=== PATIENT | female | born 1955 | race African-American/Black ===

== ENCOUNTER 2016-09-06 10:35 | Inpatient (IN) | payer OTHER ==
[2016-09-03 17:51] VITALS: BMI 30.6
[2016-09-06] MEDS ORDERED: MICROFIBRILLAR COLLAGEN 1 GM EACH ONE ×2 (11:09→12:47)
[2016-09-06] MEDS ORDERED: LIDOCAINE 1%/EPI 1:100000 (50 ML MULTI DOSE VIAL) ONE (11:09)
[2016-09-06] MEDS ORDERED: BUPIVACAINE HCL/PF 0.5% (5MG/ML) 10 ML VIAL ONE (11:09)
[2016-09-06] MEDS ORDERED: ROCURONIUM BROMIDE 50 MG/5 ML VIAL ONE (11:23)
[2016-09-06] MEDS ORDERED: PROPOFOL 20 ML ONE ×2 (11:23→11:48)
[2016-09-06] MEDS ORDERED: MIDAZOLAM HCL 2 MG/2 ML SINGLE DOSE VIAL ONE (11:23)
[2016-09-06] MEDS ORDERED: LIDOCAINE HCL/PF 2% SDV 5ML VIAL ONE (11:28)
[2016-09-06] MEDS ORDERED: ceFAZolin SODIUM 1 GM VIAL IVPB ONE (11:36)
[2016-09-06] MEDS ORDERED: SODIUM CHLORIDE 0.9% P/F 10 ML VIAL IJ ONE (11:40)
[2016-09-06] MEDS ORDERED: DEXAMETHASONE SOD PHOSPHATE 4 MG/1 ML VIAL ONE (11:43)
[2016-09-06] MEDS ORDERED: LIDOCAINE 1%/EPI 1:100000 (50 ML MULTI DOSE VIAL) PNB ONE (12:06)
[2016-09-06] MEDS ORDERED: BUPIVACAINE HCL/PF 0.5% (5MG/ML) 10 ML VIAL IJ ONE (12:06)
[2016-09-06] MEDS ORDERED: MICROFIBRILLAR COLLAGEN 1 GM EACH TP ONE (12:47)
--- NOTE | 2016-09-06 13:17 | OP ---
Operative Note - Note: Operative Date: 09/06/16 Pre-Operative Diagnosis: right thyroid mass Operation: right hemithyroidectomy Post-Operative Diagnosis: Same as Pre-op Surgeon: Franck Wills Assistant Softball Coach: Jazzy Cerna Anesthesiologist/PROPERTY OFFICER: Russel Feldman Anesthesia: General Specimens Removed: right thyroid Estimated Blood Loss (mls): 20 Fluid Volume Replaced (mls): 1,000 Operative Report Dictated: Yes
--- NOTE | 2016-09-06 13:18 | SURG ---
Surgery Workers Compensation Attorney Note Workers Compensation Attorney: Jazzy Cerna PA-C Date of Service: 09/06/16 Diagnosis: right thyroid mass Procedure: right hemithyroidectomy I was present for the entirety of the operative procedure. For further detail, please refer to operative report. Visit type - Case Type Case Type: Scheduled Admission - Emergency Emergency Visit: No - New patient This patient is new to me today: Yes Date on this admission: 09/06/16 - Critical Care Critical Care patient: No
[2016-09-06] MEDS ORDERED: ONDANSETRON 4 MG/2 ML VIAL IVPUSH PRN (13:45)
[2016-09-06] MEDS ORDERED: LACTATED RINGERS SOLUTION 1,000 ML IV SCH (13:45)
--- NOTE | 2016-09-06 13:52 | OP ---
DATE OF OPERATION: 09/06/2016 SURGICAL ATTENDING: Lizeth Martinez MD PREOPERATIVE DIAGNOSIS: Right thyroid mass. POSTOPERATIVE DIAGNOSIS: Right thyroid mass. ANESTHESIA: General endotracheal. PROCEDURE: 1. Right hemithyroidectomy. 2. Neck ultrasound. DESCRIPTION OF PROCEDURE: The patient was taken in to the operating room, placed in a supine position, endotracheally intubated, eyes were protected. Neck ultrasound was performed showing a right thyroid mass with no obvious extracapsular extension. No other thyroid mass nor lymphadenopathy was identified. The patient was then prepped and draped in the usual sterile fashion. Local anesthesia was administered, and a horizontal incision was made in an upper neck skin crease. Subplatysmal flaps were raised superiorly and inferiorly, and flap hooks were placed for exposure. The main raphe was incised, and the right-sided strap muscles were elevated off the thyroid gland. The recurrent laryngeal nerve and the superior laryngeal nerve were both identified, tested with the nerve monitor, and preserved. The vagus nerve was also tested and found to be intact. The superior pole was transected with the LigaSure. The inferior and posterior attachments were also transected. In this way, the thyroid gland was lifted off the recurrent nerve and the trachea. Parathyroid glands superiorly and inferiorly were preserved with their blood supply intact and appeared to be viable. The isthmus was transected, and this way, the right thyroid lobe was removed and sent to pathology. There was no violation of the capsule of the thyroid or the tumor. Hemostasis was achieved with electrocautery and Avitene. The wound was then closed in 3 layers. Note that the nerves were test at the conclusion of the procedure and were intact. The Dermabond was placed. The patient was then awakened, extubated, and taken to recovery in stable condition. Dr. Martinez, the attending surgeon, was present throughout the entire procedure. LIZETH MARTINEZ M.D. [id number]
[2016-09-06] MEDS ORDERED: ALBUTEROL SO4 0.083% IH SOL 2.5 MG/3 ML VIAL.NEB. NEB ONE (14:32)
[2016-09-06 15:32] LABS: ARTERIAL BLD GAS O2 SATURATION 88.2 % (90-98.9); ARTERIAL BLOOD GAS BASE EXCESS -0.5 meq/l (-2-2); ARTERIAL BLOOD GAS HCO3 24.8 meq/L (22-26); ARTERIAL BLOOD GAS PO2 60.1 mmHg (80-100); ARTERIAL BLOOD GAS pH 7.35 (7.35-7.45)
[2016-09-06 15:33] LABS: ALLENS TEST POSITIVE; ART PUNCT SITE LEFT BRACHIAL; LPM/O2% 2L; PT. ON O2? YES
[2016-09-06 15:34] LABS: TYPE OF O2 NASAL
[2016-09-06] MEDS: FUROSEMIDE 40 MG/4 ML INJECTABLE VIAL IVPB ONE (16:00)
[2016-09-06] MEDS ORDERED: FUROSEMIDE 40 MG/4 ML INJECTABLE VIAL ONE (16:04)
[2016-09-06] MEDS ORDERED: oxyCODONE HCL 5 MG TABLET PO PRN (16:05)
[2016-09-06] MEDS ORDERED: ACETAMINOPHEN 325 MG TABLET (FP) PO PRN (16:05)
--- NOTE | 2016-09-06 16:19 | PN ---
Progress Note (short form) - Note Progress Note: PULMONARY CONSULTATION DICTATED 09/06/16 IMP ACUTE HYPOXEMIC RESPIRATORY FAILURE LIKELY NEGATIVE PRESSURE PULMONARY EDEMA ? CHF H/O ASTHMA HTN S/P PARTIAL THYROIDECTOMY PLAN IV LASIX X1 IV STEROIDS INHALED BRONCHODILATORS SUPPLEMENTAL O2 F/U CHEST X-RAY AM CE X [address] CORRAL Problem List - Problems (1) Acute hypoxemic respiratory failure Code(s): J96.01 - ACUTE RESPIRATORY FAILURE WITH HYPOXIA (2) Pulmonary edema Code(s): J81.1 - CHRONIC PULMONARY EDEMA (3) Asthma Code(s): J45.909 - UNSPECIFIED ASTHMA, UNCOMPLICATED (4) History of thyroidectomy, subtotal Code(s): E89.0 - POSTPROCEDURAL HYPOTHYROIDISM (5) GERD (gastroesophageal reflux disease) Code(s): K21.9 - GASTRO-ESOPHAGEAL REFLUX DISEASE WITHOUT ESOPHAGITIS (6) HTN (hypertension) Code(s): I10 - ESSENTIAL (PRIMARY) HYPERTENSION
[2016-09-06] MEDS ORDERED: ALBUTEROL SO4 2.5/IPRATROPIUM 0.5 INH SOL 3 ML VIAL.NEB. NEB PRN (16:22)
--- NOTE | 2016-09-06 16:25 | PN ---
Progress Note (short form) - Note Progress Note: Patient had a laryngospasm on arrival in PACU which was broken by posative pressure breating by bagg and mask.Patient was running low o2 saturation in pacu.CXR showed left lower anf R lower and middle lobe infilterates.Dr Hernandez saw the patient in pacu and is taking care of her pulmonary problem.Will keep patient in the hospital tonight and will f/u.Patient is other hitchcock stable and o2 sat in low 90 on o2 FM.
[2016-09-06 16:36] LABS: MCH 25.4 pg (25.7-33.7); MCHC 32.4 g/dl (32.0-36.0); MEAN CELL VOLUME 78.5 fl (80-96); PLATELET COUNT 210 K/MM3 (134-434); RDW 14.8 % (11.6-15.6); WHITE BLOOD COUNT 10.2 K/mm3 (4.0-10.0)
[2016-09-06] MEDS: methylPREDNISolone NA SUCC 40 MG/1 ML VIAL IVPB SCH ×2 (16:45→22:08)
[2016-09-06 17:14] LABS: TROPONIN I < 0.02 ng/ml (0.00-0.05)
--- NOTE | 2016-09-06 18:41 | CONS ---
DATE OF CONSULTATION: 09/06/2016 PULMONARY CONSULTATION REFERRING PHYSICIAN: Franck Wills M.D. 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 Patient underwent a partial thyroidectomy earlier this a.m. Postoperative being wheeled to recovery room after extubation she was noted to have a significant drop in her O2 saturation to the 30s. At the time, she was noted to have respiratory distress, and felt to have acute glottic closure. At the time, she was placed on 100% O2 and bronchodilators with some improvement which raised the O2 saturations into the low 90s. The patient is a nonsmoker. There is no history of any respiratory failure in the past, there is no history of recent travel, no history of DVT or PE in the past. There is no history of recent travel. 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 REVIEW OF SYSTEMS: Positive orthopnea. Positive dyspnea. No chest pain. No palpitations. No fevers. No chills. MEDICATION: Prior to admission include vitamin D3, Crestor, Norvasc, and aspirin. PHYSICAL EXAMINATION: General: The patient is a well-developed, well-nourished female awake, but mild respiratory distress. Vital signs: She is currently afebrile. Blood pressure is 132/64, respirations 22, O2 saturation 90% on 3 L. HEENT: Head is normocephalic, atraumatic. Neck: Supple. Heart: Regular. S1, S2. Chest: Bilateral crackles throughout. A few scattered bilateral wheezes. Abdomen: Soft. Bowel sounds positive. Extremities: No cyanosis, edema. LABORATORY: BUN 10, creatinine 0.8. WBC 5, hemoglobin 12.2, hematocrit 37.8, platelet count of 211,000. Blood gas: pH 7.35, pCO2 of 46, pO2 of 16, bicarbonate 24, and saturation of 88. Chest x-ray reveals normal cardiac silhouette, diffuse bilateral infiltrates. IMPRESSION: 1. Acute hypoxic respiratory failure, most likely secondary to negative pressure, pulmonary edema, secondary to acute glottic closure. 2. Mild congestive heart failure secondary to fluid overload. 3. History of asthma. 4. Hypertension. 5. Status post thyroidectomy. PLAN: Lasix IV 20 mg x 1, supplemental O2, maintain O2 saturation greater than 90%, inhaled bronchodilators, a short course of IV steroids, obtain followup chest x- ray in the a.m., strict I's and O's. ISSA CORRAL M.D. [id number] MTDD
[2016-09-06] MEDS: oxyCODONE HCL 5 MG TABLET PO PRN (20:30)
[2016-09-06] MEDS: ROSUVASTATIN CA 10 MG TABLET (FP) PO SCH (22:09)
--- NOTE | 2016-09-07 01:27 | CONSULT ---
Consult Consult Specialty:: endocrine Referred by:: / Reason for Consultation:: sp partial thyroidectomy - History of Present Illness Chief Complaint: post op History of Present Illness: 61 y female,sp partial thyroidectomy thyroid rt lobe mass,flus,had episode of laryngo spasm post op,difficulty breathing subsequently relieved with respiratory therapy,denies chest pain,palpitation or cough,speech,swallow and neck movement no difficulty - History Source History Provided By: Patient - Past Medical History ...: No - Alcohol/Substance Use Hx Alcohol Use: No - Smoking History Smoking history: Never smoked Have you smoked in the past 12 months: No Home Medications - Allergies Allergies/Adverse Reactions: Allergies Allergy/AdvReac Type Severity Reaction Status Date / Time No Known Allergies Allergy Verified 09/06/16 10:51 - Home Medications Home Medications: Ambulatory Orders Amlodipine Besylate [Norvasc -] 2.5 mg PO DAILY 01/18/16 Aspirin [ASA -] 81 mg PO DAILY 01/18/16 Cholecalciferol (Vitamin D3) [Vitamin D3] 2,000 unit PO DAILY 01/18/16 Rosuvastatin Calcium [Crestor] 10 mg PO HS 01/18/16 Oxycodone HCl/Acetaminophen [Percocet 5-325 mg Tablet] 1 tab PO Q4H PRN #20 tablet MDD 6 09/06/16 Review of Systems - Review of Systems Constitutional: reports: No Symptoms Eyes: reports: No Symptoms HENT: reports: No Symptoms Neck: reports: No Symptoms Cardiovascular: reports: No Symptoms Respiratory: reports: No Symptoms Gastrointestinal: reports: No Symptoms Genitourinary: reports: No Symptoms Breasts: reports: No Symptoms Reported Musculoskeletal: reports: No Symptoms Integumentary: reports: No Symptoms Neurological: reports: No Symptoms Endocrine: reports: No Symptoms Physical Exam Vital Signs: Vital Signs Temperature 98 F 09/06/16 20:39 Pulse Rate 70 09/06/16 20:39 Respiratory Rate 20 09/06/16 20:39 Blood Pressure 126/70 09/06/16 20:39 O2 Sat by Pulse Oximetry (%) 95 09/06/16 18:05 Constitutional: Yes: Calm Eyes: Yes: EOM Intact HENT: Yes: Normocephalic, Hoarseness Neck: Yes: Trachea Midline, Decreased ROM, Other (thyroid surgical sight clear mild swelling) Cardiovascular: Yes: WNL Respiratory: Yes: WNL Gastrointestinal: Yes: Normal Bowel Sounds ...Rectal Exam: Yes: Deferred Renal/: Yes: WNL Musculoskeletal: Yes: WNL Extremities: Yes: WNL Edema: No Peripheral Pulses WNL: Yes Wound/Incision: Yes: Clean/Dry Neurological: Yes: Alert, Oriented ...Motor Strength: WNL Labs: CBC, BMP 09/06/16 16:15 Assessment/Plan Current Active Problems Acute hypoxemic respiratory failure (Acute) Asthma (Acute) HTN (hypertension) (Acute) History of thyroidectomy, subtotal (Acute) Pulmonary edema (Acute) partial thyroidectomy post op Abnormal Lab Results 09/06/16 09/06/16 09/06/16 15:28 16:15 16:15 WBC 10.2 H D RBC 5.24 H MCV 78.5 L ABG pCO2 at Pt Temp 46.1 H ABG pO2 at Pt Temp 60.1 L ABG O2 Sat (Measured) 88.2 L Creatine Kinase 459 H D Current Medications Generic Name Dose Route Start Last Admin Trade Name Freq PRN Reason Stop Dose Admin Acetaminophen 650 mg 09/06/16 20:13 Tylenol - PO Q4H PRN FEVER OR PAIN Albuterol/Ipratropium 1 amp 09/06/16 16:22 Duoneb - NEB Q4H PRN SHORTNESS OF BREATH Amlodipine Besylate 2.5 mg 09/07/16 10:00 Norvasc - PO DAILY [facility] Aspirin 81 mg 09/07/16 10:00 Asa - PO DAILY [facility] Methylprednisolone Sodium Succinate 60 mg 09/06/16 21:00 09/06/16 22:08 Solu-Medrol - IVPB 60 mg Q6H-IV [facility] Administration Oxycodone HCl 5 mg 09/06/16 20:13 09/06/16 20:30 Roxicodone - PO 5 mg Q4H PRN Administration PAIN Rosuvastatin Calcium 10 mg 09/06/16 22:00 09/06/16 22:09 Crestor - PO 10 mg HS B[facility] Administration plan:pulmonary consult appreciated stable from endocrine perspective awaiting path report outpatient follow up
[2016-09-07] MEDS: oxyCODONE HCL 5 MG TABLET PO PRN ×3 (02:46→19:52)
[2016-09-07] MEDS: methylPREDNISolone NA SUCC 40 MG/1 ML VIAL IVPB SCH ×3 (03:21→20:00)
[2016-09-07 08:08] LABS: BASOPHIL 0.1 % (0-2.0); MCH 25.6 pg (25.7-33.7); MCHC 32.3 g/dl (32.0-36.0); MEAN CELL VOLUME 79.2 fl (80-96); MEAN PLT VOLUME 9.4 fl (7.5-11.1); NEUTROPHILS 88.2 % (42.8-82.8); PLATELET COUNT 181 K/MM3 (134-434); RDW 14.6 % (11.6-15.6); WHITE BLOOD COUNT 10.2 K/mm3 (4.0-10.0)
--- NOTE | 2016-09-07 08:21 | CON.CARD ---
Consult Consult Specialty:: cardiology Reason for Consultation:: shortness of breath; hx ? recent equivocal stress treadmill test - History of Present Illness Chief Complaint: Pt A&Ox3; feels "much, much" better respiratory-hitchcock; no pain at surgical site (thyroid). History of Present Illness: 61 yo black female,sp partial thyroidectomy thyroid rt lobe mass,flus,, bronchial asthma, HTN, hyperlipidemida, vitamin D deficiency, had episode of laryngospasm post op,difficulty breathing subsequently relieved with respiratory therapy,denies chest pain,palpitation or cough,speech,swallow and neck movement no difficulty. Pt is followed by Dr. Montoya, test developer. She reports having a recent positive treadmill test, and is planning to undergo a stress test with imaging ( ?ECHO; ? MIBI) in the near future as an outpatient. Pt says she was diagnosed with asthma years ago, but has not had an incident of shortness of breath or used inhalers for the past 2 years. She was frightened this episode by the trouble breathing, but feels much better now. - History Source History Provided By: Patient, Medical Record Limitations to Obtaining History: No Limitations - Past Medical History Cardio/Vascular: Yes: HTN, Hyperlipdemia, Other (recent ?positive stress treadmill test) Pulmonary: Yes: Asthma Renal/: No: Renal Failure Reproductive: Yes: Postmenopausal ...: No Endocrine: Yes: Other - Alcohol/Substance Use Hx Alcohol Use: No - Smoking History Smoking history: Never smoked Have you smoked in the past 12 months: No Home Medications - Allergies Allergies/Adverse Reactions: Allergies Allergy/AdvReac Type Severity Reaction Status Date / Time No Known Allergies Allergy Verified 09/06/16 10:51 - Home Medications Home Medications: Ambulatory Orders Amlodipine Besylate [Norvasc -] 2.5 mg PO DAILY 01/18/16 Aspirin [ASA -] 81 mg PO DAILY 01/18/16 Cholecalciferol (Vitamin D3) [Vitamin D3] 2,000 unit PO DAILY 01/18/16 Rosuvastatin Calcium [Crestor] 10 mg PO HS 01/18/16 Oxycodone HCl/Acetaminophen [Percocet 5-325 mg Tablet] 1 tab PO Q4H PRN #20 tablet MDD 6 09/06/16 Family Disease History - Family Disease History Family Disease History: Diabetes: Father, Mother ( of [place] in her 80s), Sister , Heart Disease: Mother Review of Systems - Review of Systems Constitutional: reports: No Symptoms Eyes: reports: No Symptoms HENT: reports: No Symptoms Neck: reports: No Symptoms Cardiovascular: reports: No Symptoms Respiratory: reports: No Symptoms Gastrointestinal: reports: No Symptoms Genitourinary: reports: No Symptoms Breasts: reports: No Symptoms Reported Musculoskeletal: reports: No Symptoms Integumentary: reports: No Symptoms Neurological: reports: No Symptoms Endocrine: reports: Other (mass noted on neck; pt denies having had symptoms prior to the discovery) Hematology/Lymphatic: reports: No Symptoms Psychiatric: reports: No Symptoms - Risk Factors Known Risk Factors: Yes: Hypercholesterolemia, Hypertension, Race, Other ( bronchial asthma) Vital Signs: Vital Signs Temperature 98 F 09/07/16 06:00 Pulse Rate 64 09/07/16 06:00 Respiratory Rate 20 09/07/16 06:00 Blood Pressure 105/54 09/07/16 06:00 O2 Sat by Pulse Oximetry (%) 95 09/06/16 21:00 Constitutional: Yes: Well Nourished, No Distress Eyes: Yes: WNL HENT: Yes: WNL Neck: Yes: WNL Respiratory: Yes: Regular, Rales (mild right basal rales that clear significantly after coughing) Gastrointestinal: Yes: WNL Renal/: Yes: WNL Cardiovascular: Yes: WNL JVD: No Carotid Bruit: No PMI: Non-Displaced Heart Sounds: Yes: S1, S2 Musculoskeletal: Yes: WNL Extremities: Yes: WNL Edema: No Peripheral Pulses WNL: Yes Integumentary: Yes: Incision, Other (neck surgical site dressed, dry) Neurological: Yes: WNL Psychiatric: Yes: WNL - Other Data Labs, Other Data: CBC, BMP 09/07/16 05:35 Troponin, BNP 09/06/16 09/06/16 16:15 16:15 Troponin I < 0.02 B-Natriuretic Peptide 45.98 Troponin, BNP 09/06/16 09/06/16 16:15 16:15 Troponin I < 0.02 B-Natriuretic Peptide 45.98 Abnormal Lab Results 09/06/16 09/06/16 09/06/16 15:28 16:15 16:15 WBC 10.2 H D RBC 5.24 H MCV 78.5 L Neutrophils % Monocytes % ABG pCO2 at Pt Temp 46.1 H ABG pO2 at Pt Temp 60.1 L ABG O2 Sat (Measured) 88.2 L Random Glucose Creatine Kinase 459 H D 09/07/16 09/07/16 05:35 05:35 WBC 10.2 H RBC MCV 79.2 L Neutrophils % 88.2 H D Monocytes % 2.5 L ABG pCO2 at Pt Temp ABG pO2 at Pt Temp ABG O2 Sat (Measured) Random Glucose 142 H D Creatine Kinase Imaging - Results Chest X-ray: Report Reviewed (cannot bring up image; bilateral infilrates reported) EKG: Pending Problem List - Problems (1) Acute hypoxemic respiratory failure Assessment/Plan: as noted by erosion control specialist, ?negative-pressure pulmonary edema, with fluid overload. Pt is now asymptomatic from a cardiac and respiratory standpoint. F/u EKG: if unremarkable, she may be followed as an outpatient from a cardiac perspective (she is due to undergo a stress test with imaging as an outpatient). Code(s): J96.01 - ACUTE RESPIRATORY FAILURE WITH HYPOXIA (2) Asthma Code(s): J45.909 - UNSPECIFIED ASTHMA, UNCOMPLICATED (3) HTN (hypertension) Code(s): I10 - ESSENTIAL (PRIMARY) HYPERTENSION (4) History of thyroidectomy, subtotal Code(s): E89.0 - POSTPROCEDURAL HYPOTHYROIDISM (5) Hyperlipidemia Code(s): E78.5 - HYPERLIPIDEMIA, UNSPECIFIED (6) Pulmonary edema Code(s): J81.1 - CHRONIC PULMONARY EDEMA
[2016-09-07 08:26] LABS: CALCIUM 9.4 mg/dL (8.5-10.1); CREATININE 0.7 mg/dL (0.55-1.02)
--- NOTE | 2016-09-07 08:30 | PN ---
Progress Note (short form) - Note Progress Note: Anesthesia Post op Pt seen and examined S;Alert and awake states feels breathe better O: Vital Signs Temperature 98 F 09/07/16 06:00 Pulse Rate 64 09/07/16 06:00 Respiratory Rate 20 09/07/16 06:00 Blood Pressure 105/54 09/07/16 06:00 O2 Sat by Pulse Oximetry (%) 95 09/06/16 21:00 CBC, BMP 09/07/16 05:35 09/07/16 05:35 A/P: Current Active Problems Acute hypoxemic respiratory failure (Acute) Asthma (Acute) HTN (hypertension) (Acute) History of thyroidectomy, subtotal (Acute) Pulmonary edema (Acute) s/p Right thyroidectomy Post op pulmonary edema improving Continue current care Tawanda Clark MD
--- NOTE | 2016-09-07 09:30 | PN ---
Progress Note (short form) - Note Progress Note: Patient seen and examined. Wound CDI, neck flat. Breathing very easily, no complaints of dyspnea. Doing well post-op. Can DC home today. RTO within the next 2-3 weeks. [id number]
--- NOTE | 2016-09-07 09:32 | DS ---
Physical Examination Vital Signs: Vital Signs Temperature 98 F 09/07/16 06:00 Pulse Rate 64 09/07/16 06:00 Respiratory Rate 20 09/07/16 09:00 Blood Pressure 105/54 09/07/16 06:00 O2 Sat by Pulse Oximetry (%) 97 09/07/16 09:00 Constitutional: Yes: No Distress Eyes: Yes: WNL HENT: Yes: WNL Neck: Yes: WNL Cardiovascular: Yes: WNL Respiratory: Yes: WNL Gastrointestinal: Yes: WNL ...Rectal Exam: Yes: Deferred Renal/: Yes: WNL Breast(s): Yes: WNL Musculoskeletal: Yes: WNL Extremities: Yes: WNL Edema: No Integumentary: Yes: WNL Wound/Incision: Yes: Clean/Dry Neurological: Yes: WNL ...Motor Strength: WNL Psychiatric: Yes: WNL (Recovered from postoperative respiratory distress. Wound CDI. Ready for DC) Labs: CBC, BMP 09/07/16 05:35 09/07/16 05:35 Cogent, Discharge Summary - Discharge Summary Reason For Visit: THYROID NODULE Problems: All Active Problems Acute hypoxemic respiratory failure (Acute) Asthma (Acute) HTN (hypertension) (Acute) History of thyroidectomy, subtotal (Acute) Hyperlipidemia (Acute) Pulmonary edema (Acute) Ankle sprain (Acute) Atypical chest pain (Acute) Contusion (Acute) GERD (gastroesophageal reflux disease) (Acute) Left eye pain (Acute) Multiple contusions (Acute) Condition: Stable - Instructions Referrals: Franck Wills MD [Staff Physician] - Disposition: HOME - Discharge Medications Comprehensive Discharge Medication List: Ambulatory Orders Amlodipine Besylate [Norvasc -] 2.5 mg PO DAILY 01/18/16 Aspirin [ASA -] 81 mg PO DAILY 01/18/16 Cholecalciferol (Vitamin D3) [Vitamin D3] 2,000 unit PO DAILY 01/18/16 Rosuvastatin Calcium [Crestor] 10 mg PO HS 01/18/16 Oxycodone HCl/Acetaminophen [Percocet 5-325 mg Tablet] 1 tab PO Q4H PRN #20 tablet MDD 6 09/06/16
[2016-09-07] MEDS: ACETAMINOPHEN 325 MG TABLET (FP) PO PRN ×2 (09:50→19:53)
[2016-09-07] MEDS: amLODIPine BESYLATE 2.5 MG TABLET (FP) PO SCH (09:51)
[2016-09-07] MEDS: ASPIRIN 81 MG CHEWABLE TABLETS PO SCH (09:51)
--- NOTE | 2016-09-07 11:55 | PN ---
Progress Note, Physician History of Present Illness: PULMONARY ALERT,FEELING BETTER,-SOB,-COUGH - Current Medication List Current Medications: Active Medications Acetaminophen (Tylenol -) 650 mg PO Q4H PRN PRN Reason: FEVER OR PAIN Last Admin: 09/07/16 09:50 Dose: 650 mg Albuterol/Ipratropium (Duoneb -) 1 amp NEB Q4H PRN PRN Reason: SHORTNESS OF BREATH Amlodipine Besylate (Norvasc -) 2.5 mg PO DAILY [facility] Last Admin: 09/07/16 09:51 Dose: 2.5 mg Aspirin (Asa -) 81 mg PO DAILY [facility] Last Admin: 09/07/16 09:51 Dose: 81 mg Methylprednisolone Sodium Succinate (Solu-Medrol -) 60 mg IVPB Q6H-IV [facility] Last Admin: 09/07/16 09:51 Dose: 60 mg Oxycodone HCl (Roxicodone -) 5 mg PO Q4H PRN PRN Reason: PAIN Last Admin: 09/07/16 09:49 Dose: 5 mg Rosuvastatin Calcium (Crestor -) 10 mg PO HS [facility] Last Admin: 09/06/16 22:09 Dose: 10 mg - Objective Vital Signs: Vital Signs Temperature 98.1 F 09/07/16 09:41 Pulse Rate 74 09/07/16 09:41 Respiratory Rate 20 09/07/16 09:00 Blood Pressure 104/64 09/07/16 09:41 O2 Sat by Pulse Oximetry (%) 97 09/07/16 09:00 Constitutional: Yes: Well Nourished, Calm Eyes: Yes: WNL HENT: Yes: WNL Neck: Yes: WNL Cardiovascular: Yes: Regular Rate and Rhythm, S1, S2 Respiratory: Yes: Rales (LESS CRACKLES BILATERALLY) Gastrointestinal: Yes: Normal Bowel Sounds, Soft Extremities: Yes: WNL Edema: No Labs: CBC, BMP 09/07/16 05:35 09/07/16 05:35 Problem List - Problems (1) Acute hypoxemic respiratory failure Code(s): J96.01 - ACUTE RESPIRATORY FAILURE WITH HYPOXIA (2) Pulmonary edema Code(s): J81.1 - CHRONIC PULMONARY EDEMA (3) Asthma Code(s): J45.909 - UNSPECIFIED ASTHMA, UNCOMPLICATED (4) History of thyroidectomy, subtotal Code(s): E89.0 - POSTPROCEDURAL HYPOTHYROIDISM (5) GERD (gastroesophageal reflux disease) Code(s): K21.9 - GASTRO-ESOPHAGEAL REFLUX DISEASE WITHOUT ESOPHAGITIS (6) HTN (hypertension) Code(s): I10 - ESSENTIAL (PRIMARY) HYPERTENSION Assessment/Plan IMP ACUTE HYPOXEMIC RESPIRATORY FAILURE LIKELY NEGATIVE PRESSURE PULMONARY EDEMA H/O ASTHMA HTN S/P PARTIAL THYROIDECTOMY PLAN D/C STEROIDS INHALED BRONCHODILATORS SUPPLEMENTAL O2 CHEST X-RAY DR CORRAL Problem List - Problems (1) Acute hypoxemic respiratory failure Code(s): J96.01 - ACUTE RESPIRATORY FAILURE WITH HYPOXIA (2) Pulmonary edema Code(s): J81.1 - CHRONIC PULMONARY EDEMA (3) Asthma Code(s): J45.909 - UNSPECIFIED ASTHMA, UNCOMPLICATED (4) History of thyroidectomy, subtotal Code(s): E89.0 - POSTPROCEDURAL HYPOTHYROIDISM (5) GERD (gastroesophageal reflux disease) Code(s): K21.9 - GASTRO-ESOPHAGEAL REFLUX DISEASE WITHOUT ESOPHAGITIS (6) HTN (hypertension) Code(s): I10 - ESSENTIAL (PRIMARY) HYPERTENSION
--- NOTE | 2016-09-07 14:42 | HP ---
CHIEF COMPLAINT: i had trouble breathing HISTORY OF PRESENT ILLNESS: This is a 61 yo F with PMH of stable asthma (no symptoms x2 yrs), htn, hld and thyroid mass, who is day 2 s/p partial R thyroidectomy. In PACU she developed laryngeal spasm, couldn't breathe and was treated with bag mask and nebs. She felt better but subsequently remained sob. CXR revealed RLL LLL and RML infiltrates. She was evaluated by pulmonology as assessed to have negative pressure airway edema. she was given one dose of IV lasix, bronchodilator nebs, IV steroids and supplemental O2. She was also evaluated by cardiology and endoctrinology, both assessed patient to be stable from their specialty standpoint. She currentlyf eels well, at her respiratory baseline, however her exercise O2 on RA dropped to 86% today. She denoe cough, chest pain, palpitations, throat pain, loc, dizziness. Recent Travel: denies PAST MEDICAL HISTORY: as above PAST SURGICAL HISTORY: as above Social History: lives at home Smoking: denies Alcohol: denies Drugs: denies Family History: htn hld Allergies No Known Allergies Allergy (Verified 09/06/16 10:51) HOME MEDICATIONS: Home Medications Medication Instructions Recorded Amlodipine Besylate [Norvasc -] 2.5 mg PO DAILY 01/18/16 Aspirin [ASA -] 81 mg PO DAILY 01/18/16 Cholecalciferol (Vitamin D3) 2,000 unit PO DAILY 01/18/16 [Vitamin D3] Rosuvastatin Calcium [Crestor] 10 mg PO HS 01/18/16 Oxycodone HCl/Acetaminophen 1 tab PO Q4H PRN #20 tablet MDD 6 09/06/16 [Percocet 5-325 mg Tablet] REVIEW OF SYSTEMS CONSTITUTIONAL: Absent: fever, chills HEENT: Absent: rhinorrhea, nasal congestion, throat pain, throat swelling, difficulty swallowing, mouth swelling CARDIOVASCULAR: Absent: chest pain, syncope, palpitations RESPIRATORY: Absent: cough, orthopnea, wheezing, stridor, hemoptysis GASTROINTESTINAL: Absent: abdominal pain, abdominal distension, nausea, vomiting, diarrhea GENITOURINARY: Absent: dysuria MUSCULOSKELETAL: Absent: myalgia, arthralgia SKIN: Absent: rash, itching, pallor HEMATOLOGIC/IMMUNOLOGIC: Absent: frequent infections ENDOCRINE: Absent: unexplained weight gain, unexplained weight loss, heat intolerance, cold intolerance NEUROLOGIC: Absent: headache, focal weakness or paresthesias, dizziness PSYCHIATRIC: Absent: anxiety PHYSICAL EXAMINATION Vital Signs - 24 hr 09/06/16 09/06/16 09/06/16 14:55 15:10 15:25 Temperature Pulse Rate 65 61 64 Respiratory 20 20 22 Rate Blood Pressure 133/42 121/71 130/62 O2 Sat by Pulse 100 95 94 L Oximetry (%) 09/06/16 09/06/16 09/06/16 15:40 15:55 16:10 Temperature Pulse Rate 64 70 74 Respiratory 24 22 18 Rate Blood Pressure 130/62 120/62 134/64 O2 Sat by Pulse 93 L 95 94 L Oximetry (%) 09/06/16 09/06/16 09/06/16 16:25 16:40 16:55 Temperature Pulse Rate 65 65 66 Respiratory 14 18 16 Rate Blood Pressure 130/59 123/64 137/72 O2 Sat by Pulse 94 L 95 95 Oximetry (%) 09/06/16 09/06/16 09/06/16 17:10 17:25 17:40 Temperature 98.9 F Pulse Rate 60 61 61 Respiratory 20 18 18 Rate Blood Pressure 144/54 114/54 111/55 O2 Sat by Pulse 92 L 95 95 Oximetry (%) 09/06/16 09/06/16 09/06/16 18:05 20:39 21:00 Temperature 97.9 F 98 F Pulse Rate 62 70 Respiratory 16 20 20 Rate Blood Pressure 119/74 126/70 O2 Sat by Pulse 95 95 Oximetry (%) 09/07/16 09/07/16 09/07/16 02:00 06:00 09:00 Temperature 99 F 98 F Pulse Rate 60 64 Respiratory 18 20 20 Rate Blood Pressure 105/52 105/54 O2 Sat by Pulse 95 Oximetry (%) 09/07/16 09/07/16 09/07/16 09:41 11:55 14:17 Temperature 98.1 F 98.4 F Pulse Rate 74 84 66 Respiratory 20 Rate Blood Pressure 104/64 96/40 O2 Sat by Pulse 91 L Oximetry (%) GENERAL: Awake, alert, and fully oriented, in no acute distress. HEAD: Normal with no signs of trauma. EYES: Pupils equal, round and reactive to light, extraocular movements intact, sclera anicteric, conjunctiva clear. No lid lag. EARS, NOSE, THROAT: Moist mucous membranes. NECK: supple without JVD, or masses, midline surgical incision clean LUNGS: bibasilar ronchi, mild . HEART: Regular rate and rhythm, normal S1 and S2 greade 2 systolic ej murmur ABDOMEN: Soft, nontender, not distended, normoactive bowel sounds MUSCULOSKELETAL: No CVA tenderness. UPPER EXTREMITIES: 2+ pulses No peripheral edema. LOWER EXTREMITIES: 2+ pulses No peripheral edema. NEUROLOGICAL: Cranial nerves II-XII grossly intact. PSYCHIATRIC: Cooperative. Good eye contact. Appropriate mood and affect. SKIN: Warm, dry Laboratory Results - last 24 hr 09/06/16 09/06/16 09/06/16 15:28 16:15 16:15 WBC RBC Hgb Hct MCV MCHC RDW Plt Count MPV Neutrophils % Lymphocytes % Monocytes % Eosinophils % Basophils % Puncture Site Left brachial ABG pH 7.35 ABG pCO2 at Pt Temp 46.1 H ABG pO2 at Pt Temp 60.1 L ABG HCO3 24.8 ABG O2 Sat (Measured) 88.2 L ABG O2 Content 15.3 ABG Base Excess -0.5 Chad Test Positive O2 Delivery Device Nasal Oxygen Flow Rate 2l PEEP 0.0 Sodium Potassium Chloride Carbon Dioxide Anion Gap BUN Creatinine Random Glucose Calcium Creatine Kinase 459 H D CK-MB (CK-2) 2.751 Troponin I < 0.02 B-Natriuretic Peptide 45.98 09/06/16 09/07/16 09/07/16 16:15 05:35 05:35 WBC 10.2 H D 10.2 H RBC 5.24 H 4.91 Hgb 13.3 12.5 Hct 41.2 38.8 MCV 78.5 L 79.2 L MCHC 32.4 32.3 RDW 14.8 14.6 Plt Count 210 181 MPV 9.0 9.4 Neutrophils % 88.2 H D Lymphocytes % 9.2 D Monocytes % 2.5 L Eosinophils % 0.0 D Basophils % 0.1 Puncture Site ABG pH ABG pCO2 at Pt Temp ABG pO2 at Pt Temp ABG HCO3 ABG O2 Sat (Measured) ABG O2 Content ABG Base Excess Chad Test O2 Delivery Device Oxygen Flow Rate PEEP Sodium 141 Potassium 4.1 Chloride 101 Carbon Dioxide 28 Anion Gap 12 BUN 12 Creatinine 0.7 Random Glucose 142 H D Calcium 9.4 Creatine Kinase CK-MB (CK-2) Troponin I B-Natriuretic Peptide ASSESSMENT/PLAN: This is a 61 yo F with PMH of stable asthma (no symptoms x2 yrs), htn, hld and thyroid mass, who is day 2 s/p partial R thyroidectomy. In PACU she developed laryngeal spasm, couldn't breathe and was treated with bag mask and nebs. Subsequently developed negative pressure pulmonary edema ACUTE HYPOXIC RESPIRATORY FAILURE -due to negative pressure pulmonary edemacaused by acute laryngospasm (resolved) -s/p lasis -pulm, cardio consult appreciated -duoneb PRN -NC oxygen prn 3L -CXR improved, repeat AM -desatted during exercise to 86%, repeat tomorrow -incentive spirometry up tp 1250 -can stop steroids Asthma -stable, does not require treatment at this time -f/u pulm outpatient HTN norvasc, asa HLD -crestor 10 hs Thyroid mass -day 1 s/o r hemothyroidectomy -local wound care -f/u pathology result -f/u with endocrinology outpatient FEN no ivf stable lytes regular diet Dispo: med rocco. anticipate d/c tomorrow Problem List - Problem (1) Acute hypoxemic respiratory failure Code(s): J96.01 - ACUTE RESPIRATORY FAILURE WITH HYPOXIA (2) Asthma Code(s): J45.909 - UNSPECIFIED ASTHMA, UNCOMPLICATED (3) HTN (hypertension) Code(s): I10 - ESSENTIAL (PRIMARY) HYPERTENSION (4) History of thyroidectomy, subtotal Code(s): E89.0 - POSTPROCEDURAL HYPOTHYROIDISM (5) Hyperlipidemia Code(s): E78.5 - HYPERLIPIDEMIA, UNSPECIFIED (6) Pulmonary edema Code(s): J81.1 - CHRONIC PULMONARY EDEMA Visit type - Emergency Visit Emergency Visit: No - New Patient This patient is new to me today: Yes Date on this admission: 09/07/16 - Critical Care Critical Care patient: No
--- NOTE | 2016-09-07 17:01 | PN ---
Teaching Attending Note Name of Resident: Shamika Chaney ATTENDING PHYSICIAN STATEMENT I saw and evaluated the patient. I reviewed the resident's note and discussed the case with the resident. I agree with the resident's findings and plan as documented. SUBJECTIVE: This is a 61-year-old woman with a history of HTN, hyperlipidemia, asthma, vitamin D deficiency and thyroid mass who underwent right hemithyoidectomy yesterday. Post-operatively, she had laryngospasm and shortness of breath. Chest x-ray showed bilateral infiltrates. She was treated with Lasix, SoluMedrol and DuoNeb with improvement. Currently she denies shortness of breath but she is hypoxic with exertion. OBJECTIVE: Vital Signs Period Temp Pulse Resp BP Sys/Olson Pulse Ox Last 24 Hr 97.9 F-99 F 60-84 16-20 96-144/40-74 91-95 HEART: S1 S2, RRR LUNGS: Rales at bases ABDOMEN: Soft, non-tender, non-distended, normal BS EXTREMITIES: No edema ASSESSMENT AND PLAN: 1. Acute hypoxic respiratory failure secondary to negative pressure pulmonary edema from post-op laryngospasm - Continue oxygen, DuoNeb 2. Asthma 3. Hypertension - Continue Norvasc 4. Hyperlipidemia - Continue Crestor 5. Thyroid mass, s/p right hemithyroidectomy 09/06
--- NOTE | 2016-09-07 18:22 | EKG ---
Test Reason : Blood Pressure : / mmHG Vent. Rate : 057 BPM Atrial Rate : 057 BPM P-R Int : 146 ms QRS Dur : 086 ms QT Int : 420 ms P-R-T Axes : 001 016 021 degrees QTc Int : 408 ms SINUS BRADYCARDIA OTHERWISE NORMAL ECG WHEN COMPARED WITH ECG OF 18-MAR-2016 15:00, NO SIGNIFICANT CHANGE WAS FOUND Confirmed by SEB JUAN MD ([id number]) on 09/07/2016 6:22:18 PM Referred By: Franck Wills Confirmed By:SEB JUAN MD
[2016-09-07] MEDS: FUROSEMIDE 40 MG/4 ML INJECTABLE VIAL IVPB ONE (21:36)
[2016-09-07] MEDS: ROSUVASTATIN CA 10 MG TABLET (FP) PO SCH (21:36)
[2016-09-08] MEDS: methylPREDNISolone NA SUCC 40 MG/1 ML VIAL IVPB SCH ×2 (02:58→09:45)
--- NOTE | 2016-09-08 07:54 | PN ---
Progress Note, Physician Chief Complaint: Pt has occasional pain at site of thyroid surgery if she moves her neck too far to the right; otherwise has no complaints. Good appetite (eating breakfast). History of Present Illness: 61 yo black female,sp partial thyroidectomy-- thyroid rt lobe mass, bronchial asthma, HTN, hyperlipidemida, vitamin D deficiency, had episode of laryngospasm post op,difficulty breathing subsequently relieved with respiratory therapy, denies chest pain,palpitation or cough,speech,swallow and neck movement no difficulty. Pt is followed by Dr. Montoya, furniture dipper. She reports having a recent positive treadmill test, and is planning to undergo a stress test with imaging ( ?ECHO; ? MIBI) in the near future as an outpatient. Pt says she was diagnosed with asthma years ago, but has not had an incident of shortness of breath or used inhalers for the past 2 years. She was frightened this episode by the trouble breathing, but feels much better now. - Current Medication List Current Medications: Active Medications Acetaminophen (Tylenol -) 650 mg PO Q4H PRN PRN Reason: FEVER OR PAIN Last Admin: 09/07/16 19:53 Dose: 650 mg Albuterol/Ipratropium (Duoneb -) 1 amp NEB Q4H PRN PRN Reason: SHORTNESS OF BREATH Last Admin: 09/07/16 23:06 Dose: 1 amp Amlodipine Besylate (Norvasc -) 2.5 mg PO DAILY [facility] Last Admin: 09/07/16 09:51 Dose: 2.5 mg Aspirin (Asa -) 81 mg PO DAILY [facility] Last Admin: 09/07/16 09:51 Dose: 81 mg Methylprednisolone Sodium Succinate (Solu-Medrol -) 40 mg IVPB Q6H-IV [facility]JORN Last Admin: 09/08/16 02:58 Dose: 40 mg Oxycodone HCl (Roxicodone -) 5 mg PO Q4H PRN PRN Reason: PAIN Last Admin: 09/07/16 19:52 Dose: 5 mg Rosuvastatin Calcium (Crestor -) 10 mg PO HS [facility]JORN Last Admin: 09/07/16 21:36 Dose: 10 mg - Objective Vital Signs: Vital Signs Temperature 98 F 09/08/16 02:00 Pulse Rate 70 09/08/16 02:00 Respiratory Rate 18 09/08/16 02:00 Blood Pressure 113/47 09/08/16 02:00 O2 Sat by Pulse Oximetry (%) 99 09/07/16 21:00 Constitutional: Yes: No Distress Eyes: Yes: WNL HENT: Yes: WNL Neck: Yes: Other (anterior neck horiz) Cardiovascular: Yes: Regular Rate and Rhythm Respiratory: Yes: WNL Gastrointestinal: Yes: WNL ...Rectal Exam: Yes: Deferred Genitourinary: No: Anuria Breast(s): Yes: WNL Musculoskeletal: Yes: WNL Extremities: Yes: WNL Edema: No Peripheral Pulses WNL: Yes Integumentary: Yes: Incision Wound/Incision: Yes: Steri Strips Neurological: Yes: WNL Psychiatric: Yes: WNL Labs: CBC, BMP 09/07/16 05:35 09/07/16 05:35 Abnormal Lab Results 09/07/16 09/07/16 05:35 05:35 WBC 10.2 H MCV 79.2 L Neutrophils % 88.2 H D Monocytes % 2.5 L Random Glucose 142 H D Problem List - Problems (1) Acute hypoxemic respiratory failure Assessment/Plan: as noted by manager public, ?negative-pressure pulmonary edema, with fluid overload. Pt is now asymptomatic from a cardiac and respiratory standpoint. 09/07/16 EKG: sinus bradycardia (VR 57 bpm), otherwise unremarkable. She may be followed as an outpatient from a cardiac perspective (she is due to undergo a stress test with imaging as an outpatient). Code(s): J96.01 - ACUTE RESPIRATORY FAILURE WITH HYPOXIA (2) Asthma Code(s): J45.909 - UNSPECIFIED ASTHMA, UNCOMPLICATED (3) HTN (hypertension) Code(s): I10 - ESSENTIAL (PRIMARY) HYPERTENSION (4) History of thyroidectomy, subtotal Assessment/Plan: TFTs WNL. F/u with donor technician, surgeon. F/u pain management (on oxycodone). Code(s): E89.0 - POSTPROCEDURAL HYPOTHYROIDISM (5) Hyperlipidemia Code(s): E78.5 - HYPERLIPIDEMIA, UNSPECIFIED (6) Pulmonary edema Code(s): J81.1 - CHRONIC PULMONARY EDEMA
[2016-09-08 08:29] LABS: MCH 25.2 pg (25.7-33.7); MCHC 31.9 g/dl (32.0-36.0); MEAN CELL VOLUME 79.1 fl (80-96); PLATELET COUNT 179 K/MM3 (134-434); RDW 14.5 % (11.6-15.6); WHITE BLOOD COUNT 12.5 K/mm3 (4.0-10.0)
[2016-09-08 09:42] VITALS: PULSE 79; TEMP 97.9
[2016-09-08 09:43] VITALS: BP 109/46
[2016-09-08] MEDS: oxyCODONE HCL 5 MG TABLET PO PRN (09:44)
[2016-09-08] MEDS: ASPIRIN 81 MG CHEWABLE TABLETS PO SCH (09:44)
[2016-09-08] MEDS: ACETAMINOPHEN 325 MG TABLET (FP) PO PRN (09:50)
--- NOTE | 2016-09-08 10:42 | PN ---
Progress Note, Physician History of Present Illness: pulmonary alert,feeling better,-sob,-rico. O2 sat 94% post exercise on ra - Current Medication List Current Medications: Active Medications Acetaminophen (Tylenol -) 650 mg PO Q4H PRN PRN Reason: FEVER OR PAIN Last Admin: 09/08/16 09:50 Dose: 650 mg Albuterol/Ipratropium (Duoneb -) 1 amp NEB Q4H PRN PRN Reason: SHORTNESS OF BREATH Last Admin: 09/07/16 23:06 Dose: 1 amp Amlodipine Besylate (Norvasc -) 2.5 mg PO DAILY [facility]JORN Last Admin: 09/07/16 09:51 Dose: 2.5 mg Aspirin (Asa -) 81 mg PO DAILY [facility] Last Admin: 09/08/16 09:44 Dose: 81 mg Methylprednisolone Sodium Succinate (Solu-Medrol -) 40 mg IVPB Q6H-IV BJORN Last Admin: 09/08/16 09:45 Dose: 40 mg Oxycodone HCl (Roxicodone -) 5 mg PO Q4H PRN PRN Reason: PAIN Last Admin: 09/08/16 09:44 Dose: 5 mg Rosuvastatin Calcium (Crestor -) 10 mg PO HS BJORN Last Admin: 09/07/16 21:36 Dose: 10 mg - Objective Vital Signs: Vital Signs Temperature 97.9 F 09/08/16 09:40 Pulse Rate 79 09/08/16 09:40 Respiratory Rate 20 09/08/16 09:40 Blood Pressure 109/46 09/08/16 09:42 O2 Sat by Pulse Oximetry (%) 99 09/07/16 21:00 Constitutional: Yes: Well Nourished, Calm Eyes: Yes: WNL HENT: Yes: WNL Neck: Yes: WNL Cardiovascular: Yes: Regular Rate and Rhythm, S1, S2 Respiratory: Yes: CTA Bilaterally Gastrointestinal: Yes: WNL Extremities: Yes: WNL Edema: No Labs: CBC, BMP - ....Imaging Chest X-ray: Report Reviewed, Image Reviewed Problem List - Problems (1) Acute hypoxemic respiratory failure Code(s): J96.01 - ACUTE RESPIRATORY FAILURE WITH HYPOXIA (2) Pulmonary edema Code(s): J81.1 - CHRONIC PULMONARY EDEMA (3) Asthma Code(s): J45.909 - UNSPECIFIED ASTHMA, UNCOMPLICATED (4) History of thyroidectomy, subtotal Code(s): E89.0 - POSTPROCEDURAL HYPOTHYROIDISM (5) GERD (gastroesophageal reflux disease) Code(s): K21.9 - GASTRO-ESOPHAGEAL REFLUX DISEASE WITHOUT ESOPHAGITIS (6) HTN (hypertension) Code(s): I10 - ESSENTIAL (PRIMARY) HYPERTENSION Assessment/Plan IMP ACUTE HYPOXEMIC RESPIRATORY FAILURE LIKELY NEGATIVE PRESSURE PULMONARY EDEMA H/O ASTHMA HTN S/P PARTIAL THYROIDECTOMY PLAN PREDNISONE X3 DAYS INHALED BRONCHODILATORS DISCHARGE HOME DR CORRAL Problem List - Problems (1) Acute hypoxemic respiratory failure Code(s): J96.01 - ACUTE RESPIRATORY FAILURE WITH HYPOXIA (2) Pulmonary edema Code(s): J81.1 - CHRONIC PULMONARY EDEMA (3) Asthma Code(s): J45.909 - UNSPECIFIED ASTHMA, UNCOMPLICATED (4) History of thyroidectomy, subtotal Code(s): E89.0 - POSTPROCEDURAL HYPOTHYROIDISM (5) GERD (gastroesophageal reflux disease) Code(s): K21.9 - GASTRO-ESOPHAGEAL REFLUX DISEASE WITHOUT ESOPHAGITIS (6) HTN (hypertension) Code(s): I10 - ESSENTIAL (PRIMARY) HYPERTENSION
[2016-09-08] MEDS: amLODIPine BESYLATE 2.5 MG TABLET (FP) PO SCH (12:52)
--- NOTE | 2016-09-08 15:58 | DS ---
Physical Examination Vital Signs: Vital Signs Temperature 97.9 F 09/08/16 09:40 Pulse Rate 79 09/08/16 09:40 Respiratory Rate 20 09/08/16 09:40 Blood Pressure 109/46 09/08/16 09:42 O2 Sat by Pulse Oximetry (%) 94 L 09/08/16 09:00 Findings/Remarks: no fever or chills , no abd apin , no SOB or pain in throat . Constitutional: Yes: Well Nourished, No Distress, Calm Eyes: Yes: Conjunctiva Clear, EOM Intact HENT: Yes: Atraumatic, Normocephalic, Other (oropharyngeal bruising ( after intubation ) . Nl uvula). No: Pharyngeal Erythema Neck: Yes: Supple, Trachea Midline Cardiovascular: Yes: Regular Rate and Rhythm, S1, S2. No: Murmur, Rub Respiratory: Yes: Regular, CTA Bilaterally Gastrointestinal: Yes: Normal Bowel Sounds, Soft Extremities: Yes: Other (no tremor) Edema: No Labs: CBC, BMP 09/08/16 08:00 09/07/16 05:35 Discharge Summary Reason For Visit: THYROID NODULE Current Active Problems Acute hypoxemic respiratory failure (Acute) History of thyroidectomy, subtotal (Acute) Pulmonary edema (Acute) HTN (hypertension) (Chronic) Hyperlipidemia (Chronic) Hospital Course: Dc Diagnoses : 1- Negative pressure pum edema 2- Hemithyrodectomy 3- Resp failure due to #1 Hospital course : 61 y/o lady with h/o HTN, hyperlipidemia, asthma, vitamin D deficiency and thyroid mass who presented to hospital on 09/06 for hemithyroidectomy . after her surgery she developed hypoxia and had to be placed on Oxygen. Cxray showed pulm edema , which was thought to be due to negative pressure pulm edema. she was seen by card and PUlm and was given a dose of lasix and steroids . Her sx as well as her cxray significantly improved after those interventions and she was weaned of oxygen. today on exam she has no wheezing, no crackles and nl uvula with no edema of makayla-pharynx. she was sent home on steroids for 2 days , and her home medications . ( she was called as prednisone was not included in dc paperwork, sent to pharmacy after dc ) she is to follow with Dr. Scott as she will need repeat TFTs soon to evaluate the need fro thyroid hormon replacement . also tofollow with Sx and pulm Condition at dc : improved time spent for dc 30 min Condition: Improved - Instructions Diet, Activity, Other Instructions: Dear LAN ROCHA, Post Operative Instructions Physical activity Resume your normal everyday activity as tolerated. You may walk unlimited kristal of and climb stairs. You may resume driving the car when you feel safe and comfortable behind the wheel, do not drive while taking narcotics. Wound care You may shower 48 hours after surgery. If there are tapes present on the skin, you may shower over them. Diet There are no dietary restrictions. Eat healthy, high-fiber foods. Drink 6 to 8 glasses of liquid each day. This will assist in keeping your bowels are regular. Pain management You may take Tylenol (acetaminophen) or Ibuprofen (for example, Motrin, Advil etc.) Any pain prescription medication ordered should be taken as prescribed for moderate to severe pain. Call Dr. Wills for any of the following: Severe pain not relieved by medication Fever of 101 or higher Excessive bleeding or drainage on dressing Call Dr. Wills's office for an appointment within the next two weeks. - hold your norvasc fro few days until you see Kirsten huynh. check your blood pressure daily, if you notice BP > 140 then resume your norvasc - make sure you see, hotel houseman as you might need to take thyroid hormon in near future Referrals: Shayne Hernandez MD [Staff Physician] - Baltazar Larson MD [Staff Physician] - 1 Week Franck Wills MD [Staff Physician] - Monalisa Gonzales MD [Staff Physician] - Disposition: HOME - Home Medications Comprehensive Discharge Medication List: Ambulatory Orders Amlodipine Besylate [Norvasc -] 2.5 mg PO DAILY 01/18/16 Aspirin [ASA -] 81 mg PO DAILY 01/18/16 Cholecalciferol (Vitamin D3) [Vitamin D3] 2,000 unit PO DAILY 01/18/16 Rosuvastatin Calcium [Crestor] 10 mg PO HS 01/18/16 Oxycodone HCl/Acetaminophen [Percocet 5-325 mg Tablet] 1 tab PO Q4H PRN #20 tablet MDD 6 09/06/16 Prednisone 20 mg PO DAILY #4 tablet 09/08/16 This patient is new to me today: Yes Date on this admission: 09/08/16 Emergency Visit: Yes ED Registration Date: 09/07/16 Care time: The patient presented to the Emergency Department on the above date and was hospitalized for further evaluation of their emergent condition. Critical Care patient: No - Discharge Referral Referred to [facility] Med P.C.: No
--- NOTE | 2016-09-09 09:36 | PATH ---
Surgical Pathology Report Patient Name: LAN ROCHA Med. Rec. #: [id number] /Age/Gender: 1955 (Age: 61) / F Account: [id number] Location: 4 W TELEMETRY U Taken: 09/06/2016 Received: 09/06/2016 Reported: 09/09/2016 Physicians: Franck Wills M.D. Specimen(s) Received RIGHT THYROID Clinical History Thyroid nodule Final Diagnosis THYROID, RIGHT, HEMITHYROIDECTOMY: MULTINODULAR GOITER WITH DOMINANT HYPERPLASTIC NODULE. NO MALIGNANT NEOPLASM IDENTIFIED. Comment: See prior slide review [id number]. Electronically Signed Floyd Menchaca M.D. Gross Description Received in formalin labeled "right thyroid," is a 21 g, 5.3 x 2.3 x 2.3 cm thyroid lobe. The outer surface is anders-red with an intact capsule. Sectioning reveals a focal well-circumscribed colloid nodule. The nodule abuts the outer capsule but does not appear to invade through it. The remaining thyroid parenchyma is red-brown and beefy. Mammography Tech sections are sequentially submitted in 8 cassettes. /09/06/2016 saudi/09/06/2016
== END 2016-09-08 13:08 | disposition home or self-care (01) | DRG 951 ==
LOC: JASU-SURG 10:35 → J4W 19:20
PROVIDERS: ADMIT Internal Medicine; ATTEND Internal Medicine
PROC: 0GTH0ZZ Resection of Right Thyroid Gland Lobe, Open Approach (ICD-10-PCS; principal; 2016-09-06 12:00)
DX: J95.89 Other postprocedural complications and disorders of respiratory system, not elsewhere classified (principal); J95.822 Acute and chronic postprocedural respiratory failure; J38.5 Laryngeal spasm; Y83.8 Other surgical procedures as the cause of abnormal reaction of the patient, or of later complication, without mention of misadventure at the time of the procedure; J45.909 Unspecified asthma, uncomplicated; I10 Essential (primary) hypertension; E78.5 Hyperlipidemia, unspecified; E07.89 Other specified disorders of thyroid; J81.1 Chronic pulmonary edema; R00.1 Bradycardia, unspecified; E55.9 Vitamin D deficiency, unspecified; N95.8 Other specified menopausal and perimenopausal disorders; K21.9 Gastro-esophageal reflux disease without esophagitis
CPT/HCPCS: 36415; 36600; 71010-TC; 80048; 82306; 82550; 82553; 82803; 83880; 84484; 85025; 85027; 88307-TC; 93005; 93010; 94640; 94760; 94761

== ENCOUNTER 2017-07-24 15:13 | Emergency (ER) | payer OTHER ==
[2017-07-24 15:27] VITALS: BP 114/65; PULSE 83; TEMP 97.9; BMI 29.8
--- NOTE | 2017-07-24 15:27 | PDOC ---
Rapid Medical Evaluation Time Seen by Provider: 07/24/17 15:26 Medical Evaluation: Allergies Allergy/AdvReac Type Severity Reaction Status Date / Time No Known Allergies Allergy Verified 09/06/16 10:51 07/24/17 15:26 pt c/o: left ear pain since friday Pt on brief exam: afebrile Pt ordered for: none. Offered tylenol/motrin-refused Pt to proceed to the ED Discharge Disposition - Diagnosis Left ear pain - Referrals - Patient Instructions - Post Discharge Activity
[2017-07-24] MEDS ORDERED: IBUPROFEN 600 MG TABLET (FP) PO ONE ×2 (16:56→16:57)
--- NOTE | 2017-07-24 17:02 | PDOC ---
History of Present Illness - General Chief Complaint: Ear Problem Stated Complaint: EAR PROBLEM Time Seen by Provider: 07/24/17 15:26 History Source: Patient Exam Limitations: No Limitations - History of Present Illness Initial Comments: CHIEF COMPLAINT: 61 y/o afebrile female with PMH HTN, HLD c/o left ear pain x 4 days. HISTORY OF PRESENT ILLNESS: The patient states she slipped and fell 4 days ago landing on her left side and hitting the left side of her head. She states later that day she noticed small piece of dried blood in her left ear. She states her left ear has been sore ever since without any more bleeding. She denies f/c, [place], LOC, dizziness, neck pain, changes in vision/hearing, n/v/d, CP , SOB and all other symptoms. The patient is not on a blood thinner. Past History - Past Medical History Allergies/Adverse Reactions: Allergies Allergy/AdvReac Type Severity Reaction Status Date / Time No Known Allergies Allergy Verified 07/24/17 15:28 Home Medications: Ambulatory Orders Amlodipine Besylate [Norvasc -] 2.5 mg PO DAILY 01/18/16 Aspirin [ASA -] 81 mg PO DAILY 01/18/16 Cholecalciferol (Vitamin D3) [Vitamin D3] 2,000 unit PO DAILY 01/18/16 Rosuvastatin Calcium [Crestor] 10 mg PO HS 01/18/16 Oxycodone HCl/Acetaminophen [Percocet 5-325 mg Tablet] 1 tab PO Q4H PRN #20 tablet MDD 6 09/06/16 Prednisone 20 mg PO DAILY #4 tablet 09/08/16 COPD: No HTN: Yes Hypercholesterolemia: Yes Thyroid Disease: (THYROID CYST) - Suicide/Smoking/Psychosocial Hx Smoking History: Never smoked Have you smoked in the past 12 months: No Hx Alcohol Use: No Drug/Substance Use Hx: No Substance Use Type: None Review of Systems - Review of Systems Able to Perform ROS?: Yes Constitutional: No: Symptoms Reported HEENTM: Yes: Ear Pain (left side), Ear Discharge (blood 4 days ago). No: Eye Pain, Blurred Vision, Recent change in vision, Nose Pain, Tinnitus, Nose Bleeding, Hearing Loss, Throat Pain, Throat Swelling Respiratory: No: Symptoms reported Cardiac (ROS): No: Symptoms Reported ABD/GI: No: Symptoms Reported Neurological: No: Symptoms reported *Physical Exam - Vital Signs Last Vital Signs Temp Pulse Resp BP Pulse Ox 97.9 F 83 16 114/65 100 07/24/17 15:26 07/24/17 15:26 07/24/17 15:26 07/24/17 15:26 07/24/17 15:26 - Physical Exam Comments: The patient is a well appearing ambulatory female in NAD or obvious discomfort. General Appearance: Yes: Nourished, Appropriately Dressed HEENT: positive: EOMI, LENA, Normal ENT Inspection, TMs Normal, Pharynx Normal, Other (No blood in ear canals b/l. No orbital swelling or crepitus.). negative : Pharyngeal Erythema, Nasal Congestion, Rhinorrhea, Sinus Tenderness, TM Bulging, TM Dull, TM Erythema Neurologic: positive: certified pedorthotist II-XII NML intact, Fully Oriented, Alert, Normal Mood/ Affect, Other (No raccoon eyes. No mastoid TTP b/l. No battles signs. No hematomas on head. No facial swelling or crepitus.) Medical Decision Making - Medical Decision Making A/P: 61 y/o female with left ear soreness after falling on left side and hitting left side of head 4 days ago. Physical exam unremarkable. SUggested motrin for pain and follow up with ENT. Patient informs me she has an appointment with ENT doctor on 07/29. No need for imaging at this time. Pt instructed to return to the ER with any worsening or concerning symptoms. The patient verbalizes understanding of all instructions, has no further questions and is awaiting discharge. *DC/Admit/Observation/Transfer Diagnosis at time of Disposition: Left ear pain - Discharge Dispostion Disposition: HOME Condition at time of disposition: Good - Referrals Referrals: Monalisa Gonzales MD [Primary Care Provider] - - Patient Instructions Printed Discharge Instructions: DI for Ear Pain-Adult Additional Instructions: Discharge Instructions: -Take 600ng of over the counter Ibuprofen every 6 hours with food for pain -Keep ENT appointment scheduled for 07/29 -Return to the ER immediately with any worsening or concerning symptoms - Post Discharge Activity
== END 2017-07-24 17:11 | disposition home or self-care (01) ==
LOC: JERFT 15:13
DX: S09.8XXA Other specified injuries of head, initial encounter (principal); W01.10XA Fall on same level from slipping, tripping and stumbling with subsequent striking against unspecified object, initial encounter; Y93.89 Activity, other specified; Y92.89 Other specified places as the place of occurrence of the external cause; Y99.8 Other external cause status; I10 Essential (primary) hypertension
CPT/HCPCS: 99281-25

== ENCOUNTER 2018-05-29 10:51 | Emergency (ER) | payer OTHER ==
[2018-05-29 11:09] VITALS: BMI 29.8
--- NOTE | 2018-05-29 13:17 | PDOC ---
History of Present Illness - General Chief Complaint: CVA/TIA Stated Complaint: NUMBNESS ON THE CHIN,FINGERS Time Seen by Provider: 05/29/18 11:20 History Source: Patient Exam Limitations: No Limitations - History of Present Illness Initial Comments: 05/29/18 12:29 62-year-old female presents to ED with complaints of tingling intermittently for the past 5 days to her chin and right second and third digits without weakness, numbness, swelling or skin discoloration. Patient states had a nodule removed from her thyroid in March without postoperative complications. Patient denies throat pain, ear pain, difficulty swallowing, headache, visual changes, or confusion. Timing/Duration: intermittent Severity: mild Associated Symptoms: reports: denies symptoms Past History - Travel Traveled outside of the country in the last 30 days: No Close contact w/someone who was outside of country & ill: No - Past Medical History Allergies/Adverse Reactions: Allergies Allergy/AdvReac Type Severity Reaction Status Date / Time Penicillins Allergy Severe Rash Verified 05/29/18 11:06 Home Medications: Ambulatory Orders Amlodipine Besylate [Norvasc -] 2.5 mg PO DAILY 01/18/16 Aspirin [ASA -] 81 mg PO DAILY 01/18/16 Cholecalciferol (Vitamin D3) [Vitamin D3] 2,000 unit PO DAILY 01/18/16 Rosuvastatin Calcium [Crestor] 10 mg PO HS 01/18/16 COPD: No HTN: Yes Hypercholesterolemia: Yes Thyroid Disease: (THYROID CYST) - Immunization History Immunization Up to Date: Yes - Suicide/Smoking/Psychosocial Hx Smoking History: Never smoked Have you smoked in the past 12 months: No Hx Alcohol Use: No Drug/Substance Use Hx: No Substance Use Type: None Patient Lives Alone: No Lives with/in: spouse/SO Review of Systems - Review of Systems Able to Perform ROS?: Yes Constitutional: No: Symptoms Reported HEENTM: No: Symptoms Reported Respiratory: No: Symptoms reported Cardiac (ROS): No: Symptoms Reported ABD/GI: No: Symptoms Reported : No: Symptoms Reported Musculoskeletal: No: Symptoms Reported Integumentary: No: Symptoms Reported Neurological: Yes: Tingling Hematologic/Lymphatic: No: Symptoms Reported *Physical Exam - Vital Signs Last Vital Signs Temp Pulse Resp BP Pulse Ox 98.1 F 67 18 119/57 L 100 05/29/18 11:06 05/29/18 11:06 05/29/18 11:06 05/29/18 11:06 05/29/18 11:36 - Physical Exam General Appearance: Yes: Nourished, Appropriately Dressed. No: Apparent Distress HEENT: negative: Pale Conjunctivae Neck: positive: Trachea midline, Normal Thyroid, Supple. negative: Tender, Lymphadenopathy (R), Lymphadenopathy (L) Respiratory/Chest: positive: Lungs Clear, Normal Breath Sounds. negative: Chest Tender, Respiratory Distress, Accessory Muscle Use Cardiovascular: positive: Regular Rhythm, Regular Rate. negative: Murmur Extremity: positive: Normal Capillary Refill, Normal Inspection, Normal Range of Motion. negative: Coldness, Pedal Edema, Swelling Integumentary: positive: Normal Color, Warm, Moist Neurologic: positive: wallpaper remover steam II-XII NML intact, Normal Response, Motor Strength 5/ 5 (ambulatory), Respond to painful stimul, Finger to Nose. negative: EOM Palsy , Facial Droop, Numbness, Sensory Deficit Moderate Sedation - Procedure Monitoring Vital Signs: Procedure Monitoring Vital Signs Temperature 98.1 F 05/29/18 11:06 Pulse Rate 67 05/29/18 11:06 Respiratory Rate 18 05/29/18 11:06 Blood Pressure 119/57 L 05/29/18 11:06 O2 Sat by Pulse Oximetry (%) 100 05/29/18 11:36 ED Treatment Course - RADIOLOGY Radiology Studies Ordered: Category Date Time Status CERVICAL SPINE CT W/O CONTR [CT] Stat CT Scan 05/29/18 11:[address] WITHOUT CONTRAST [CT] Stat CT Scan 05/29/18 11:20 Ordered Medical Decision Making - Medical Decision Making 05/29/18 12:31 Chief complaint: Intermittent tingling to base of chin and right second and third digits for the past 4 days without any other complaints patient status post thyroid surgery in March Exam: No weakness or sensory deficits noted no tenderness to area no skin discoloration Plan: Head and cervical CT ordered 05/29/18 13:33 CT negative for acute pathology. Patient's cervical CT shows right facet hypertrophy of C7-T1 with small calcified plaques at the right common carotid bifurcation *DC/Admit/Observation/Transfer Diagnosis at time of Disposition: Tingling of face, Tingling of right upper extremity - Discharge Dispostion Disposition: HOME Condition at time of disposition: Good - Referrals - Patient Instructions Printed Discharge Instructions: DI for Numbness/tingling Additional Instructions: At this time your neck CT shows right facet hypertrophy likely causing the tingling to your second and third digits of your right hand. In regards to the tingling of your chin I do recommend he follow up with her PCP as this may be related to your surgery a few months ago - Post Discharge Activity
[2018-05-29 13:53] VITALS: BP 123/65; PULSE 61; TEMP 98
== END 2018-05-29 13:53 | disposition home or self-care (01) ==
LOC: JER 10:51
DX: R20.2 Paresthesia of skin (principal); I10 Essential (primary) hypertension; E07.9 Disorder of thyroid, unspecified; E78.00 Pure hypercholesterolemia, unspecified
CPT/HCPCS: 70450-TC; 72125-TC; 99283-25

== ENCOUNTER 2018-10-10 10:15 | Emergency (ER) | payer OTHER ==
[2018-10-10 10:22] VITALS: BP 122/66; PULSE 68; TEMP 98.1; BMI 30.9
--- NOTE | 2018-10-10 11:07 | PDOC ---
History of Present Illness - General Chief Complaint: Pain Stated Complaint: FALL Time Seen by Provider: 10/10/18 10:40 History Source: Patient Exam Limitations: No Limitations - History of Present Illness Initial Comments: 10/10/18 11:01 63 yo F w/ no sig PMHx comes in c/o R shoulder, R wrist, R knee, R ankle pain s/ p trip and fall 4 days ago while getting off the bus. She landed on her hands and knees and has been in pain since. Denies head trauma, no LOC, no neck pain, no back pain, no other injury. Denies numbness/tingling, no weakness, no sensory deficits. She applied tiger balm which helps temporarily. She has not taken any PO meds. Past History - Past Medical History Allergies/Adverse Reactions: Allergies Allergy/AdvReac Type Severity Reaction Status Date / Time Penicillins Allergy Severe Rash Verified 10/10/18 11:52 Home Medications: Ambulatory Orders Amlodipine Besylate [Norvasc -] 2.5 mg PO DAILY 01/18/16 Aspirin [ASA -] 81 mg PO DAILY 01/18/16 Cholecalciferol (Vitamin D3) [Vitamin D3] 2,000 unit PO DAILY 01/18/16 Rosuvastatin Calcium [Crestor] 10 mg PO HS 01/18/16 COPD: No HTN: Yes Hypercholesterolemia: Yes Thyroid Disease: (THYROID CYST) - Immunization History Immunization Up to Date: Yes - Suicide/Smoking/Psychosocial Hx Smoking History: Never smoked Have you smoked in the past 12 months: No Hx Alcohol Use: No Drug/Substance Use Hx: No Substance Use Type: None Review of Systems - Review of Systems Able to Perform ROS?: Yes Constitutional: No: Chills, Fever, Malaise, Night Sweats HEENTM: No: Eye Pain, Recent change in vision, Throat Pain Respiratory: No: Cough, Shortness of Breath Cardiac (ROS): No: Chest Pain, Palpitations, Chest Tightness ABD/GI: No: Diarrhea, Nausea, Vomiting, Abdominal cramping : No: Dysuria, Hematuria Musculoskeletal: No: Back Pain Integumentary: No: Rash Neurological: No: Headache, Numbness, Dizziness Psychiatric: No: Change in Appetite Endocrine: No: Unexplained Weight Loss *Physical Exam - Vital Signs Last Vital Signs Temp Pulse Resp BP Pulse Ox 98.1 F 68 17 122/66 99 10/10/18 10:16 10/10/18 10:16 10/10/18 10:16 10/10/18 10:16 10/10/18 10:16 - Physical Exam General Appearance: Yes: Nourished. No: Apparent Distress HEENT: positive: LENA, Normal ENT Inspection, Normal Voice. negative: Pale Conjunctivae, Scleral Icterus (R), Scleral Icterus (L) Neck: positive: Supple. negative: Decreased range of motion, Tender midline Respiratory/Chest: negative: Respiratory Distress, Accessory Muscle Use Cardiovascular: positive: Regular Rate Musculoskeletal: positive: Normal Inspection. negative: CVA Tenderness, Decreased Range of Motion Extremity: positive: Normal Capillary Refill, Normal Range of Motion, Other ( Upper and lower extremities without assymetry, no skin changes, good pulses, full sensory function, good cap refill, 5/5 strength. R shoulder with FROM, diffuse non focal tenderness, no clavicular tenderness. R wrist with mild swelling/tenderness on ulnar side, FROM, 5/5 strength. R knee without swelling, FROM, able to straight leg raise, mild diffuse non focal tenderness. R ankle with mild swelling and tenderness at lateral maleolus and anteriorly to lat/ mall above deltoid ligament. FROM, 5/5 strength. Overal NVI. ). negative: Tender, Pedal Edema Integumentary: positive: Normal Color, Dry. negative: Jaundice, Rash Neurologic: positive: Fully Oriented, Alert, Normal Mood/Affect ED Treatment Course - RADIOLOGY Radiology Studies Ordered: Category Date Time Status ANKLE-RIGHT [RAD] Stat Radiology 10/10/18 10:52 Ordered KNEE 3 POS-RIGHT [RAD] Stat Radiology 10/10/18 10:52 Ordered SHOULDER-RIGHT [RAD] Stat Radiology 10/10/18 10:52 Ordered WRIST- RIGHT [RAD] Stat Radiology 10/10/18 10:52 Ordered Medical Decision Making - Medical Decision Making 10/10/18 11:08 63 yo F w/ R shoulder/wrist/ankle/knee pain s/p trip and fall, will do xrays. Pt declines pain meds at this time, she is ambulating to xray. Pt has an appointment with her PMD on Friday10/10/18 11:59 Xrays normal, mild arthritis to knee WIll discharge with ortho follow up, PMD follow up Return for worsening/concerning symptoms Pt declines any pain meds Pt ambulating out of ED in NAD without need for assistance. *DC/Admit/Observation/Transfer Diagnosis at time of Disposition: Arthritis of knee Fall Qualifiers: Encounter type: initial encounter Qualified Code(s): W19.XXXA - Unspecified fall, initial encounter Shoulder injury Qualifiers: Encounter type: initial encounter Laterality: right Qualified Code(s): S49.91XA - Unspecified injury of right shoulder and upper arm, initial encounter Knee injury Qualifiers: Encounter type: initial encounter Laterality: right Qualified Code(s): S89.91XA - Unspecified injury of right lower leg, initial encounter Wrist injury Qualifiers: Encounter type: initial encounter Laterality: right Qualified Code(s): S69.91XA - Unspecified injury of right wrist, hand and finger(s), initial encounter Ankle sprain Qualifiers: Encounter type: initial encounter Involved ligament of ankle: unspecified ligament Laterality: right Qualified Code(s): S93.401A - Sprain of unspecified ligament of right ankle, initial encounter - Discharge Dispostion Disposition: HOME Condition at time of disposition: Stable - Referrals Referrals: Dianna Mitchell MD [Primary Care Provider] - Hero Sebastian DO [Staff Physician] - - Patient Instructions - Post Discharge Activity
== END 2018-10-10 12:08 | disposition home or self-care (01) ==
LOC: JERFT 10:15
DX: S93.401A Sprain of unspecified ligament of right ankle, initial encounter (principal); S49.81XA Other specified injuries of right shoulder and upper arm, initial encounter; S89.81XA Other specified injuries of right lower leg, initial encounter; S69.81XA Other specified injuries of right wrist, hand and finger(s), initial encounter; V78.4XXA Person boarding or alighting from bus injured in noncollision transport accident, initial encounter; Y93.89 Activity, other specified; Y92.414 Local residential or business street as the place of occurrence of the external cause; Y99.8 Other external cause status
CPT/HCPCS: 73030-TC-RT-FY; 73110-TC-RT-FY; 73562-TC-RT-FY; 73610-TC-RT-FY; 99281-25

== ENCOUNTER → 2022-05-31 | Day surgery (SDC) | payer OTHER ==
[2022-05-30 09:05] VITALS: BMI 29.5
[~2022-05-31] MED LIST: BUPIVACAINE HCL/PF 0.5% (5MG/ML) 10 ML VIAL ONE; LIDOCAINE HCL/PF 1% SDV 5ML VIAL ONE; TRIAMCINOLONE ACET 40MG/1ML VIAL ONE
== END | disposition home or self-care (01) ==
LOC: JASU-SURG 04:14
PROVIDERS: ATTEND Pain Medicine Pain Medicine
DX: Z53.8 Procedure and treatment not carried out for other reasons (principal)

== ENCOUNTER 2022-06-26 04:07 | Day surgery (SDC) | payer OTHER ==
[2022-06-21 15:15] VITALS: BMI 30.4
[~2022-06-26 04:07] MED LIST changes: +ACETAMINOPHEN 325 MG TABLET (FP) PO PRN; -BUPIVACAINE HCL/PF 0.5% (5MG/ML) 10 ML VIAL ONE; -LIDOCAINE HCL/PF 1% SDV 5ML VIAL ONE; -TRIAMCINOLONE ACET 40MG/1ML VIAL ONE
[2022-06-26] MEDS ORDERED: CYCLOPENTOLATE HCL 1% OPHTH SOLN 2 ML BOTTLE ONE (07:34)
[2022-06-26] MEDS ORDERED: KETOROLAC TROMETHAMINE 0.5% EYE DROP 1 DROP DROPS ONE (07:34)
[2022-06-26] MEDS ORDERED: PHENYLEPHRINE 2.5% OPTHALMIC DROP 2ML BOTTLE ONE (07:34)
[2022-06-26] MEDS ORDERED: TROPICAMIDE 1% OPHTH SOLN 15 ML BOTTLE ONE (07:35)
[2022-06-26] MEDS ORDERED: OFLOXACIN 0.3% OPHTHALMIC SOLUTION 5 ML BOTTLE ONE (07:35)
[2022-06-26] MEDS: PHENYLEPHRINE 2.5% OPHTH SOLN 15 ML BOTTLE OP SCH ×3 (07:50→08:01)
[2022-06-26] MEDS: OFLOXACIN 0.3% OPHTHALMIC SOLUTION 5 ML BOTTLE OP SCH ×3 (07:50→08:02)
[2022-06-26] MEDS: KETOROLAC TROMETHAMINE 0.5% EYE DROP 1 DROP DROPS OP SCH ×3 (07:50→08:02)
[2022-06-26] MEDS: TROPICAMIDE 1% OPHTH SOLN 15 ML BOTTLE OP SCH ×3 (07:50→08:01)
[2022-06-26] MEDS: CYCLOPENTOLATE HCL 1% OPHTH SOLN 2 ML BOTTLE OP SCH ×3 (07:50→08:02)
[2022-06-26] MEDS ORDERED: PROPOFOL 20 ML ONE (09:07)
[2022-06-26] MEDS ORDERED: MIDAZOLAM HCL 2 MG/2 ML SINGLE DOSE VIAL ONE (09:08)
[2022-06-26] MEDS ORDERED: BUPIVACAINE HCL/PF 0.75% 10 ML VIAL RB ONE (09:16)
[2022-06-26] MEDS ORDERED: LIDOCAINE HCL/PF 2% SDV 5ML VIAL PNB ONE (09:16)
[2022-06-26] MEDS ORDERED: POVIDONE-IODINE 5% OPHTHALMIC PREP 30 ML SOLUTION OS ONE (09:18)
[2022-06-26] MEDS ORDERED: BSS (NA/CA/MG/K) BALANCED SALT SOLUTION OPHTH SOLN 15 ML BOTTLE IO ONE (09:24)
[2022-06-26] MEDS ORDERED: LIDOCAINE HCL 1% PRESERVATIVE FREE - 30ML VIAL IO ONE (09:25)
[2022-06-26] MEDS ORDERED: CHONDROITIN SU A/HYALUR SOD 1 KIT IO ONE (09:26)
[2022-06-26] MEDS ORDERED: EPINEPHrine/PF 1 MG/1 ML (1:1,000) AMPULE SQ ONE (09:30)
[2022-06-26 10:19] VITALS: RESP 18
[2022-06-26 11:24] VITALS: BP 111/60; PULSE 67; TEMP 98.7
== END 2022-06-26 11:30 | disposition home or self-care (01) ==
LOC: JASU-SURG 04:07
PROVIDERS: ATTEND Ophthalmology
PROC: 08RK3JZ Replacement of Left Lens with Synthetic Substitute, Percutaneous Approach (ICD-10-PCS; principal; 2022-06-26 09:00)
DX: H26.9 Unspecified cataract (principal)

== ENCOUNTER 2022-07-10 04:31 | Day surgery (SDC) | payer OTHER ==
[2022-07-08 17:35] VITALS: BMI 30.4
[~2022-07-10 04:31] MED LIST changes: +CYCLOPENTOLATE HCL 1% OPHTH SOLN 2 ML BOTTLE OP SCH; +KETOROLAC TROMETHAMINE 0.5% EYE DROP 1 DROP DROPS OP SCH; +OFLOXACIN 0.3% OPHTHALMIC SOLUTION 5 ML BOTTLE OP SCH; +PHENYLEPHRINE 2.5% OPHTH SOLN 15 ML BOTTLE OP SCH; +TROPICAMIDE 1% OPHTH SOLN 15 ML BOTTLE OP SCH
[2022-07-10] MEDS ORDERED: LIDOCAINE HCL/PF 2% SDV 5ML VIAL ONE (07:20)
[2022-07-10] MEDS ORDERED: BUPIVACAINE HCL/PF 0.75% 10 ML VIAL ONE (07:21)
[2022-07-10] MEDS ORDERED: LIDOCAINE HCL/PF 1% SDV 5ML VIAL ONE (07:21)
[2022-07-10] MEDS ORDERED: TETRACAINE 0.5% OPHTH SOLN 2 ML BOTTLE ONE (07:21)
[2022-07-10] MEDS ORDERED: POVIDONE-IODINE 5% OPHTHALMIC PREP 30 ML SOLUTION ONE (07:21)
[2022-07-10] MEDS ORDERED: KETOROLAC TROMETHAMINE 0.5% EYE DROP 1 DROP DROPS ONE (08:30)
[2022-07-10] MEDS ORDERED: PHENYLEPHRINE 2.5% OPTHALMIC DROP 2ML BOTTLE ONE (08:30)
[2022-07-10] MEDS ORDERED: CYCLOPENTOLATE HCL 1% OPHTH SOLN 2 ML BOTTLE ONE (08:31)
[2022-07-10] MEDS ORDERED: TROPICAMIDE 1% OPHTH SOLN 15 ML BOTTLE ONE (08:31)
[2022-07-10] MEDS ORDERED: OFLOXACIN 0.3% OPHTHALMIC SOLUTION 5 ML BOTTLE ONE ×2 (08:31)
[2022-07-10] MEDS ORDERED: PROPOFOL 20 ML ONE (09:55)
[2022-07-10] MEDS ORDERED: BUPIVACAINE HCL/PF 0.75% 10 ML VIAL RB ONE (10:00)
[2022-07-10] MEDS ORDERED: LIDOCAINE HCL/PF 2% SDV 5ML VIAL INF ONE (10:00)
[2022-07-10] MEDS ORDERED: POVIDONE-IODINE 5% OPHTHALMIC PREP 30 ML SOLUTION OD ONE (10:02)
[2022-07-10] MEDS ORDERED: BSS (NA/CA/MG/K) BALANCED SALT SOLUTION OPHTH SOLN 15 ML BOTTLE OD ONE (10:08)
[2022-07-10] MEDS ORDERED: LIDOCAINE HCL 1% PRESERVATIVE FREE - 30ML VIAL IO ONE (10:10)
[2022-07-10] MEDS ORDERED: CHONDROITIN SU A/HYALUR SOD 1 KIT IO ONE (10:10)
[2022-07-10] MEDS ORDERED: EPINEPHrine/PF 1 MG/1 ML (1:1,000) AMPULE SQ ONE (10:17)
[2022-07-10] MEDS ORDERED: ACETAMINOPHEN 325 MG TABLET (FP) ONE (10:47)
[2022-07-10 11:01] VITALS: RESP 18
[2022-07-10 11:56] VITALS: BP 115/60; PULSE 58; TEMP 97.9
== END 2022-07-10 11:40 | disposition home or self-care (01) ==
LOC: JASU-SURG 04:31
PROVIDERS: ATTEND Ophthalmology
PROC: 08RJ3JZ Replacement of Right Lens with Synthetic Substitute, Percutaneous Approach (ICD-10-PCS; principal; 2022-07-10 10:00)
DX: H26.9 Unspecified cataract (principal)

== ENCOUNTER 2022-07-25 14:27 | Emergency (ER) | payer OTHER ==
[2022-07-25 15:14] VITALS: BP 121/89; PULSE 94; RESP 16; TEMP 97.8; BMI 29.2
[2022-07-25] MEDS ORDERED: KETOROLAC TROMETHAMINE 15 MG/ML VIAL IM ONE (16:50)
[2022-07-25] MEDS ORDERED: KETOROLAC TROMETHAMINE 15 MG/ML VIAL ONE (16:52)
== END 2022-07-25 16:58 | disposition home or self-care (01) ==
LOC: FER 14:27
PROC: 3E0233Z Introduction of Anti-inflammatory into Muscle, Percutaneous Approach (ICD-10-PCS; principal; 2022-07-25)
DX: M79.601 Pain in right arm (principal)
CPT/HCPCS: 73030-TC-RT-FY; 99284-25

== ENCOUNTER 2022-10-24 08:53 | Emergency (ER) | payer OTHER ==
[2022-10-24 09:18] VITALS: BP 128/69; PULSE 83; RESP 16; TEMP 99.2; BMI 29.2
[2022-10-24] MEDS ORDERED: KETOROLAC TROMETHAMINE 15 MG/ML VIAL IM ONE (09:48)
[2022-10-24] MEDS ORDERED: KETOROLAC TROMETHAMINE 15 MG/ML VIAL ONE (09:52)
== END 2022-10-24 11:06 | disposition home or self-care (01) ==
LOC: FER 08:53
PROC: 3E0233Z Introduction of Anti-inflammatory into Muscle, Percutaneous Approach (ICD-10-PCS; principal; 2022-10-24)
DX: M25.511 Pain in right shoulder (principal); M25.611 Stiffness of right shoulder, not elsewhere classified
CPT/HCPCS: 99282-25

== ENCOUNTER 2024-02-08 20:01 | Observation (INO) | payer OTHER ==
[2024-02-08 20:13] VITALS: TEMP 97.6; BMI 27.6
[2024-02-08 21:21] LABS: INR 0.9 (0.83-1.09); PROTHROMBIN TIME (PATIENT) 10.4 SEC (9.7-13.0)
[2024-02-08 21:23] LABS: ACTIVATED PTT 24.7 SECONDS (25.2-36.5)
[2024-02-08 21:38] LABS: POTASSIUM 4.8 mmol/L (3.5-5.1)
[2024-02-08 21:40] LABS: ALBUMIN 3.9 g/dl (3.4-5.0); BLOOD UREA NITROGEN 12.4 mg/dL (7-18)
[2024-02-08 21:43] LABS: CREATININE 0.7 mg/dL (0.55-1.3)
[2024-02-08 21:45] LABS: BILIRUBIN,TOTAL 0.6 mg/dL (0.2-1); TOT PROT 7.2 g/dl (6.4-8.2)
[2024-02-08] MEDS: SODIUM CHLORIDE 1,000 ML IV STA (22:30)
[2024-02-08 22:34] LABS: HIV INTERPRETATION NEGATIVE (NEGATIVE)
[2024-02-08 22:49] LABS: BASO % 0.6 % (0-2.0); EOS % 3.9 % (0-4.5); HEMATOCRIT 40.3 % (32.4-45.2); HEMOGLOBIN 12.9 GM/dL (10.7-15.3); LYMPH % 47.9 % (8-40); MCH 25.5 pg (25.7-33.7); MCHC 31.9 g/dl (32.0-36.0); MEAN CELL VOLUME 79.8 fl (80-96); MEAN PLT VOLUME 8.8 fl (7.5-11.1); MONO % 7.9 % (3.8-10.2); NEUT % 39.7 % (42.8-82.8); PLATELET COUNT 236 10^3/uL (134-434); RBC 5.05 M/mm3 (3.60-5.2); RDW 15.3 % (11.6-15.6); WHITE BLOOD COUNT 4.6 K/mm3 (4.0-10.0)
[2024-02-08] MEDS ORDERED: ACETAMINOPHEN 325 MG TABLET (FP) PO PRN (23:34)
[2024-02-09] MEDS ORDERED: AZITHROMYCIN IVPB 500 MG/250 ML BAG IVPB ONE (04:13)
[2024-02-09] MEDS: AZITHROMYCIN IVPB 500 MG in DEXTROSE 5%-WATER - 250 ML IVPB ONE (04:22)
[2024-02-09 05:51] VITALS: RESP 16
[2024-02-09 06:57] LABS: BASO % 0.5 % (0-2.0); EOS % 4.4 % (0-4.5); HEMOGLOBIN 12.4 GM/dL (10.7-15.3); LYMPH % 46.5 % (8-40); MCH 25.7 pg (25.7-33.7); MCHC 32.6 g/dl (32.0-36.0); MEAN PLT VOLUME 8.8 fl (7.5-11.1); MONO % 9.6 % (3.8-10.2); PLATELET COUNT 213 10^3/uL (134-434); RBC 4.81 M/mm3 (3.60-5.2); RDW 14.7 % (11.6-15.6); WHITE BLOOD COUNT 3.7 K/mm3 (4.0-10.0)
[2024-02-09 07:04] LABS: POTASSIUM 3.7 mmol/L (3.5-5.1)
[2024-02-09 07:06] LABS: CALCIUM 9.2 mg/dL (8.5-10.1)
[2024-02-09 07:07] LABS: BLOOD UREA NITROGEN 11.1 mg/dL (7-18); MAGNESIUM 2.6 mg/dL (1.8-2.4)
[2024-02-09 07:09] LABS: CREATININE 0.6 mg/dL (0.55-1.3)
[2024-02-09 07:10] LABS: PHOSPHOROUS 3.1 mg/dL (2.5-4.9)
[2024-02-09] MEDS ORDERED: amLODIPine BESYLATE 2.5 MG TABLET (FP) ONE (10:15)
[2024-02-09] MEDS: amLODIPine BESYLATE 2.5 MG TABLET (FP) PO SCH (10:44)
[2024-02-09 10:45] VITALS: BP 145/75; PULSE 75
[2024-02-09] MEDS ORDERED: ROSUVASTATIN CA 10 MG TABLET PO SCH (22:00)
[2024-02-09] MEDS ORDERED: ASPIRIN 81 MG CHEWABLE TABLETS PO SCH (22:00)
[2024-02-10] MEDS ORDERED: AZITHROMYCIN IVPB 500 MG/250 ML BAG IVPB SCH (10:00)
== END 2024-02-09 15:10 | disposition left against medical advice (07) ==
LOC: JER 20:01 → JERBED 22:42
PROVIDERS: ADMIT Internal Medicine; ATTEND Family Medicine
PROC: 3E03329 Introduction of Other Anti-infective into Peripheral Vein, Percutaneous Approach (ICD-10-PCS; principal; 2024-02-08)
PROC: 3E0337Z Introduction of Electrolytic and Water Balance Substance into Peripheral Vein, Percutaneous Approach (ICD-10-PCS; 2024-02-08)
DX: R07.89 Other chest pain (principal); R20.2 Paresthesia of skin; I10 Essential (primary) hypertension; R10.13 Epigastric pain; E78.5 Hyperlipidemia, unspecified; M19.90 Unspecified osteoarthritis, unspecified site; J45.909 Unspecified asthma, uncomplicated; J98.11 Atelectasis; D72.820 Lymphocytosis (symptomatic); Z88.0 Allergy status to penicillin
CPT/HCPCS: 36415; 71045-TC-FY; 71046-TC-FY; 80048; 80053; 83735; 84100; 84484; 85025; 85610; 85730; 86803; 86850; 86900; 86901; 87389; 93005; 93010; 96361; 96365; 99285-25; G0378